=== PATIENT | male | born 1940 | race Caucasian/White ===

== ENCOUNTER 2023-03-19 13:14 | Observation (INO) ==
[2023-03-19] MEDS ORDERED: SODIUM CHLORIDE 500 ML IV STA (13:44)
--- NOTE | 2023-03-19 13:53 | ED.PDOC ---
General ED Provider: Dr. NIKI BURKETT MD Chief Complaint: Weakness Stated Complaint: CC: Weakness. Reported weak for 2 days and not gotten out of bed. Normally he is fully alert and resides in assistive living with his pet dog. Today, he got up to use the bathroom and fell with no major injuries. In the ED, temp of 101.6 noted. He reports "discomfort" when asked if he's in pain. No headache or neck injury. No chest pain or SOB but some cough. No abdominal pain. No vomiting. Unable to give details about his PMH. He is a [facility] patient and his medicines are under the microwave in his residence. Said he thought he had the COVID vaccine and usually takes the flu vaccine. Time Seen by Provider: 03/19/23 13:17 Mode of Arrival: Ambulance Information Source: Patient and EMT Exam Limitations: Clinical condition and Altered mental status Referred to ED by: Other (Assistive living facility staff) Nursing and Triage Documentation Reviewed and Agree: Yes Review of Systems Review Of Systems Constitutional: Reports Malaise, Weakness and Loss of appetite Eyes: Denies Drainage or Decreased acuity Ears, Nose, Mouth, Throat: Denies Ear pain Respiratory: Reports Cough; Denies Shortness of Breath Cardiac: Denies Chest pain GI: Denies Abdominal pain or Vomiting : Denies Dysuria Musculoskeletal: Reports Muscle pain (Discomfort, unable to provide further details) Skin: Reports No symptoms Neurological: Denies Headache All Other Systems: Other (all pertinent ROS done) Physical Exam Physical Exam Appearance: Reports Ill-appearing, No pain distress, Well-nourished and Other (Fully oriented to person and hospital. Knows it 2022 and thinks it's January. ) Ill-appearing: Moderate Pain Distress: None Eyes: Reports HALIMA and EOMI ENT: Reports Nose normal and Oropharynx normal Neck: Supple Respiratory: Reports Airway patent, Breath sounds equal, Respirations nonlabored and Rhonchi; Denies Wheezes or Retractions Cardiovascular: Reports RRR, Pulses normal, No rub and No murmur GI/: Reports Soft, Nontender, No masses, Bowel sounds normal and No Organomegaly; Denies Tender or Mass Musculoskeletal: Reports Normal strength, ROM intact, No edema and No calf tenderness Skin: Reports Warm, Dry and Normal color Neurological: Reports Sensation intact, Motor intact, Reflexes intact, Cranial nerves intact and Other (Slow to respond, opens eyes but answers questions with short answers) Psychiatric: Reports Affect appropriate and Mood appropriate Interpretation EKG Interpretation EKG Interpretation By: ED Physician Time of EKG #1: 14:16 Rate: Normal Rhythm: Sinus Ectopy: None [place]: NL ST Segment: Normal Interpretation: Normal EKG Radiology Interpretation Radiology Interpretation By: Radiologist Exam Interpreted: Portable CXR (normal), CT Scan (Some hypoattenuation of the brain, possible old but recommended MRI brain) and Other (MRI of Brain with and without showed no acute changes but some old infarct. ) Physician Notification Case Discussed Physician Notified: Keshia Hobbs Time of Notification: 17:00 Comments: OBS admit Admit/Transition Orders Entered by ED Provider: No Critical Care Note Critical Care Note Total Critical Care Time (mins): 0 Course Course 03/19/23 13:45 03/19/23 13:45 Orders, Labs, Meds: Lab Review 03/19/23 03/19/23 13:45 14:00 WBC 6.01 RBC 4.44 L Hgb 13.7 L Hct 41.9 L MCV 94.4 H MCH 30.9 MCHC 32.7 RDW Coeff of Art 13.6 Plt Count 145 Immature Gran % (Auto) 0.5 Neut % (Auto) 75.2 Lymph % (Auto) 3.7 L Atkinson % (Auto) 20.1 H Eos % (Auto) 0.0 Baso % (Auto) 0.5 Neut # (Auto) 4.5 Lymph # (Auto) 0.2 L Atkinson # (Auto) 1.2 Eos # (Auto) 0.0 Baso # (Auto) 0.0 Immature Gran # (Auto) 0.0 ESR 7 Sodium 135.7 Potassium 4.37 Chloride 102.6 Carbon Dioxide 26.8 Anion Gap 10.67 BUN 18.4 Creatinine 1.12 H Estimated GFR (MDRD) 63.00 BUN/Creatinine Ratio 16.42 Glucose 108.1 H Lactic Acid 1.26 Calcium 9.10 Total Bilirubin 0.80 AST 47.3 ALT 25.8 Alkaline Phosphatase 71.3 Total Protein 7.83 Albumin 4.39 Globulin 3.44 Albumin/Globulin Ratio 1.27 Procalcitonin < 0.05 Urine Color Yellow Urine Clarity Clear Urine pH 7.0 Ur Specific [place] 1.020 Urine Protein 2+ H Urine Glucose (UA) Negative Urine Ketones 1+ H Urine Blood 2+ H Urine Nitrite Negative Urine Bilirubin Negative Urine Urobilinogen 0.2 Ur Leukocyte Esterase Negative Urine Microscopic RBC 5-10 Ur Squamous Epith Cells Not Reportable Influ A Molecular Assay Negative by naat Influ B Molecular Assay Negative by naat RSV Antigen Negative by naat SARS CoV-2 RNA Rapid YASMINE Positive H Orders Category Date Time Status EKG-(ED ONLY) Stat CARDIO 03/19/23 13:53 Completed BLOOD CULTURE (ED ONLY) Stat LAB 03/19/23 13:45 Received CBC W/ AUTO DIFF Stat LAB 03/19/23 13:45 Completed CMP [COMPREHENSIVE METABOLIC PANEL] Stat LAB 03/19/23 13:45 Completed COVID [SARS COV-2 RNA RAPID YASMINE] Stat LAB 03/19/23 13:45 Completed ESR Stat LAB 03/19/23 13:45 Completed FLU A & B MOLECULAR [FLU A/B MOLECULAR] Stat LAB 03/19/23 13:45 Completed LACTIC ACID Stat LAB 03/19/23 13:45 Completed PROCALCITONIN Stat LAB 03/19/23 13:45 Completed RSV Stat LAB 03/19/23 14:00 Completed URINALYSIS C & S IF INDICATED Stat LAB 03/19/23 13:45 Completed Acetaminophen [Tylenol 160 mg/5 ml] Meds 03/19/23 13:59 Discontinued 480 mg PO ONCE ONE Ceftriaxone/D5w 1 gm Premix [Rocephin 1 gm/50 ml D5w] Meds 03/19/23 15:30 Active 1 gm in 50 ml IV DAILY Dexamethasone Sod Phosphate [Decadron] Meds 03/19/23 15:12 Discontinued 6 mg IVP ONCE ONE Ibuprofen Susp [Motrin Susp Ud] Meds 03/19/23 15:43 Discontinued 600 mg PO ONCE STA Sodium Chloride 0.9% [Sodium Chloride] 500 ml Meds 03/19/23 13:44 Active IV 125 mls/hr CHEST, 1V AP ONLY Stat RADS 03/19/23 13:[address] HEAD W/O CONTRAST Stat RADS 03/19/23 13:44 Completed MRI BRAIN W/WO CONTRAST Stat RADS 03/19/23 15:14 Completed Medications Generic Name Dose Route Start Last Admin Trade Name Freq PRN Reason Stop Dose Admin Sodium Chloride 500 mls @ 125 mls/hr 03/19/23 13:44 03/19/23 13:57 Sodium Chloride IV 03/19/23 17:43 125 mls/hr .Q4H STA Administration CEFTRIAXONE/D5W 1 GM PREMIX 1 gm in 50 mls @ 100 mls/hr 03/19/23 15:30 03/19/23 16:03 Rocephin 1 Gm/50 Ml D5w IV 03/22/23 15:29 100 mls/hr DAILY ZAKIA Administration Discontinued Medications Generic Name Dose Route Start Last Admin Trade Name Francisca PRN Reason Stop Dose Admin Acetaminophen 480 mg 03/19/23 13:59 03/19/23 14:06 Acetaminophen 160 Mg/5 Ml Susp Syringes PO 03/19/23 14:00 480 mg ONCE ONE Administration Dexamethasone Sodium Phosphate 6 mg 03/19/23 15:12 03/19/23 15:23 Dexamethasone Sod Phos 10 Mg/Ml Inj IVP 03/19/23 15:13 6 mg ONCE ONE Administration Ibuprofen 600 mg 03/19/23 15:43 03/19/23 16:03 Ibuprofen 200 Mg/10 Ml Susp PO 03/19/23 15:44 600 mg ONCE STA Administration Vital Signs: Temp Pulse Resp BP Pulse Ox 03/19/23 15:26 103.1 F H 03/19/23 15:20 98 21 H 140/55 L 97 03/19/23 13:18 101.6 F H 102 H 26 H 144/72 H 97 Ayla ADAN called and said it's ok to admit at [facility]. He is more perky now. Awake. All signs point to COVID only. Due to weakness will admit OBS Discharge Plan Discharge Patient Disposition: PLACED OBSERVATION Discharge Problem: Muscle weakness, COVID-19 Prescriptions: No Action aspirin 81 mg capsule 81 mg PO DAILY trazodone 50 mg tablet 50 mg PO BEDTIME pravastatin 40 mg tablet 40 mg PO DAILY omeprazole 40 mg capsule,delayed release(DR/EC) 40 mg PO DAILY metoprolol tartrate [Lopressor] 50 mg tablet 50 mg PO BID melatonin 3 mg capsule 6 mg PO BEDTIME meclizine [Dramamine (meclizine)] 25 mg tablet 25 mg PO TID PRN (Reason: dizziness) magnesium oxide 400 mg magnesium capsule 400 mg PO DAILY docusate sodium [Colace] 100 mg capsule 200 mg PO DAILY PRN (Reason: constipation) cholecalciferol (vitamin D3) 50 mcg (2,000 unit) capsule 50 mcg PO DAILY baclofen 5 mg tablet 5 mg PO TID acetaminophen 500 mg capsule 500 mg PO Q4-6H PRN (Reason: fever or pain) Did you review [place] PR[employer] for ALL controlled substances?: Not Applicable ED Provider: NIKI BURKETT Condition: Fair Physician Progress Note: []Call to Ayla ARELLANO and they given permission to admit to [facility]. Keshia Hobbs called and agreed to OBS admit
[2023-03-19 13:57] LABS: BASOPHILS % (AUTO) 0.5 % (0.0-3.0); HEMATOCRIT 41.9 % (42.0-52.0); HEMOGLOBIN 13.7 g/dl (14.0-18.0); IMMATURE GRANULOCYTE % (AUTO) 0.5 % (0.0-5.0); LYMPHOCYTES # (AUTO) 0.2 K/uL (0.60-3.4); LYMPHOCYTES % (AUTO) 3.7 (10.0-50.0); MEAN CORPUSCULAR HEMOGLOBIN 30.9 pg (27.0-31.0); MEAN CORPUSCULAR HGB CONC 32.7 (31.8-35.4); MEAN CORPUSCULAR VOLUME 94.4 fl (80.0-94.0); MONOCYTES # (AUTO) 1.2 K/uL (0.4-2.0); MONOCYTES % (AUTO) 20.1 (0-10); NEUTROPHILS # (AUTO) 4.5 K/ul (2.0-6.9); NEUTROPHILS % (AUTO) 75.2 % (42.2-75.2); PLATELET COUNT 145 10^3/uL (140-440); RDW COEFFICIENT OF VARIATION 13.6 % (11.6-14.8); RED BLOOD COUNT 4.44 10^6/ul (4.70-6.10); WHITE BLOOD COUNT 6.01 K/ul (4.2-10.2)
[2023-03-19] MEDS ORDERED: TYLENOL 160 MG/5 ML PO ONE (13:59)
[2023-03-19 14:10] LABS: ALANINE AMINOTRANSFERASE 25.8 U/L (0-50); ALBUMIN 4.39 g/dL (3.5-5.0); ALKALINE PHOSPHATASE 71.3 U/L (56-119); ASPARTATE AMINO TRANSFERASE 47.3 U/L (17-59); BILIRUBIN,TOTAL 0.8 mg/dL (0.2-1.3); BLOOD UREA NITROGEN 18.4 mg/dL (9-20); CALCIUM 9.1 mg/dL (8.4-10.2); CARBON DIOXIDE 26.8 mmol/L (22-30.0); CHLORIDE 102.6 mmol/L (98-107); CREATININE 1.12 mg/dL (0.60-1.10); GLUCOSE 108.1 mg/dL (74-106); POTASSIUM 4.37 mmol/L (3.5-5.1); SARS COV-2 RNA RAPID NAAT POSITIVE (NEGATIVE); SODIUM 135.7 mmol/L (134.5-145); TOTAL PROTEIN 7.83 g/dL (6.3-8.2)
[2023-03-19 14:14] LABS: BILIRUBIN,URINE Negative (NEGATIVE); CLARITY,URINE Clear (CLEAR); COLOR,URINE Yellow (YELLOW); GLUCOSE, URINE (UA) Negative (NEGATIVE); KETONES,URINE 1+ (NEGATIVE); LEUKOCYTE ESTERASE ,URINE Negative (NEGATIVE); NITRITE,URINE Negative (NEGATIVE); PROTEIN,URINE 2+ (NEGATIVE); URINE, BLOOD 2+ (NEGATIVE); UROBILINOGEN,URINE 0.2 (0.2)
[2023-03-19 14:16] LABS: MOLECULAR FLU A NEGATIVE BY NAAT (NEGATIVE); MOLECULAR FLU B NEGATIVE BY NAAT (NEGATIVE)
[2023-03-19 14:20] LABS: RSV MOLECULAR NEGATIVE BY NAAT (NEGATIVE)
--- NOTE | 2023-03-19 14:27 | DI ---
EXAM: CHEST RADIOGRAPH TECHNIQUE: Single frontal chest radiograph. HISTORY: Fever COMPARISON: None. IMPRESSION: The heart size is normal. Mediastinal contours and pulmonary vasculature are within fred l limits. The lungs are clear. There is no pleural effusion. There is no pneumothorax. EKG leads and clips obscure the chest. No acute findings. No active disease.
--- NOTE | 2023-03-19 14:42 | CT ---
EXAMINATION: HEAD CT WITHOUT CONTRAST HISTORY: Weakness. TECHNIQUE: Noncontrast CT of the brain was performed with images acquired from skull base to vertex. 2-D coronal and sagittal reformatted images were obtained from the axial source images. Contrast Dose: None. CT Dose Reduction Techniques Performed: Yes. COMPARISON: None. FINDINGS: Asymmetric low attenuation high centrum semiovale lesion in the right sobeida cranium sparing of the gra y-white matter junction. Ischemic process less likely. Malignancy or underlying mass not excluded. Additional low attenuation lesion in the lentiform nucleus and basal ganglia possibly representing ch ronic process sees. Brain MRI would definitively exclude an acute process as deemed clinically necaimee garcia. Ventricles: Normal size and morphology for age. Paranasal sinuses and mastoid air cells: Visualized portions of paranasal sinuses are clear. Mastoid air cells are clear. Orbits: Normal visualized portions. Sella/Skull Base: Normal. Other: Scalp and visualized soft tissues are normal. Calvarium is normal. IMPRESSION: As above. All CT scans are performed using dose optimization techniques as appropriate to the performed exam an d include at least one of the following: Automated exposure control, adjustment of the mA and/or kV according t o size, and the use of iterative reconstruction technique.
[2023-03-19 14:50] LABS: ERYTHROCYTE SEDIMENTATION RATE 7 mm/hr (0-15)
[2023-03-19] MEDS ORDERED: DECADRON IVP ONE (15:12)
[2023-03-19] MEDS ORDERED: ROCEPHIN 1 GM/50 ML D5W 1 GM/50 ML BAG IV SCH (15:30)
[2023-03-19] MEDS ORDERED: MOTRIN SUSP UD PO STA (15:43)
--- NOTE | 2023-03-19 16:24 | MRI ---
EXAMINATION: MAGNETIC RESONANCE IMAGING (MRI) OF THE BRAIN WITH AND WITHOUT CONTRAST HISTORY: Altered mental status. TECHNIQUE: Multiplanar multi-weighted MRI of the brain and brainstem was performed with and without i ntravenous contrast using the general brain protocol. Contrast: 13 mL clariscan COMPARISON: CT head 03/19/2023 FINDINGS: Parenchyma: No acute infarct. No acute hemorrhage. No enhancing intracranial lesion. No mass effec t or midline shift. Craniocervical junction is normal. Chronic Change: Scattered foci of T2/FLAIR hyperintensity in the periventricular and subcortical whit e matter, which are nonspecific, however likely represent mild chronic microvascular ischemia. No re mote microhemorrhages. Mild to moderate generalized cortical volume loss. 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 Chronic la cunar infarcts in the left lentiform nucleus and thalamus. Ventricles/Extra-axial Spaces: Ventricles are concordant with the degree of parenchymal volume loss. Normal basal cisterns. Sella/Skull Base: Pituitary and sella are normal. Paranasal Sinuses/Mastoids: Paranasal sinuses are clear. Mastoid air cells are clear. Orbits: Normal. Vasculature: Normal flow voids in the carotid arteries and basilar artery. Calvarium/Scalp: Normal marrow. No soft tissue swelling. Limited Cervical Spine: No significant abnormality. IMPRESSION: No acute intracranial abnormality. 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
[2023-03-19] MEDS ORDERED: MOTRIN PO PRN (17:11)
[2023-03-19] MEDS: [UNRECOGNIZED DRUG - OTHER] PO SCH ×2 (18:51→20:27)
[2023-03-19 19:49] VITALS: BMI 19.0
[2023-03-19] MEDS: DESYREL PO SCH (20:25)
[2023-03-19] MEDS: LOPRESSOR PO SCH (20:25)
[2023-03-20 05:05] LABS: HEMATOCRIT 41.8 % (42.0-52.0); HEMOGLOBIN 13.6 g/dl (14.0-18.0); IMMATURE GRANULOCYTE % (AUTO) 0.1 % (0.0-5.0); LYMPHOCYTES # (AUTO) 0.5 K/uL (0.60-3.4); LYMPHOCYTES % (AUTO) 7.6 (10.0-50.0); MEAN CORPUSCULAR HEMOGLOBIN 30.8 pg (27.0-31.0); MEAN CORPUSCULAR HGB CONC 32.5 (31.8-35.4); MEAN CORPUSCULAR VOLUME 94.6 fl (80.0-94.0); MONOCYTES # (AUTO) 0.7 K/uL (0.4-2.0); NEUTROPHILS # (AUTO) 5.5 K/ul (2.0-6.9); NEUTROPHILS % (AUTO) 82.3 % (42.2-75.2); PLATELET COUNT 130 10^3/uL (140-440); RDW COEFFICIENT OF VARIATION 13.7 % (11.6-14.8); RED BLOOD COUNT 4.42 10^6/ul (4.70-6.10); WHITE BLOOD COUNT 6.69 K/ul (4.2-10.2)
[2023-03-20 05:17] LABS: ALANINE AMINOTRANSFERASE 31.2 U/L (0-50); ALBUMIN 4.01 g/dL (3.5-5.0); ALKALINE PHOSPHATASE 53.6 U/L (56-119); ASPARTATE AMINO TRANSFERASE 71.5 U/L (17-59); BILIRUBIN,TOTAL 0.64 mg/dL (0.2-1.3); CALCIUM 8.76 mg/dL (8.4-10.2); CARBON DIOXIDE 27.7 mmol/L (22-30.0); CHLORIDE 104.9 mmol/L (98-107); CREATININE 1.02 mg/dL (0.60-1.10); GLUCOSE 123.8 mg/dL (74-106); POTASSIUM 4.25 mmol/L (3.5-5.1); SODIUM 137.1 mmol/L (134.5-145); TOTAL PROTEIN 7.32 g/dL (6.3-8.2)
[2023-03-20] MEDS: LOPRESSOR PO SCH ×2 (08:28→20:12)
[2023-03-20] MEDS: MAG-OX PO SCH (08:28)
[2023-03-20] MEDS: PRAVACHOL PO SCH (08:30)
[2023-03-20] MEDS: [UNRECOGNIZED DRUG - OTHER] PO SCH ×2 (08:30→20:15)
[2023-03-20] MEDS ORDERED: PRILOSEC PO SCH (09:00)
[2023-03-20] MEDS ORDERED: ASPIRIN CHEWABLE PO SCH (09:00)
--- NOTE | 2023-03-20 11:37 | PCM ---
Date of Service Date Seen by Provider: 03/20/23 Time Seen by Provider: 08:40 Admit Day/Time Admission Date: 03/19/23 Admission Time: 17:11 Reason for Admission Chief Complaint: COVID Hospital Provider [facility] Provider: GIUSEPPE PETTIT [facility]-C, [facility] History of Present Illness History of Present Illness: Patient is a 82 year old male from assisted living with pmhx of hypertension, GERD, hyperlipidemia who presents with weakness, fall, and fever. Patient had not gotten out of bed for two days. Had a fall while ambulating to the bathroom. Did not have any major injuries. Has been more confused than his usual. Had a fever 101.6 and then 103.1 in the ER. His covid was positive. CXR negative. UA negative except for 2+ blood. On RA. He was lethargic initially. Was given motrin and tylenol. Fever improved and he was more alert. Pt thinks he's had the covid vaccine in the past. He was admitted to [facility]. This morning patient is confused and paranoid. He keeps asking about his expensive suits in the closet. States he needs to shave his face or he will be yelled at during inspection this evening. He has a family friend who has been helping care for him at the assisted living - providing groceries, etc. He has maxed out his efforts and feels he needs alf placement at this time. Pt is alert this morning. He is oriented to self and time. He thought he was at his assisted living. Sp[facility], Li Lerner NP. She states he has dementia at baseline but the paranoid has been recently new. He hadn't taken his prepackaged medications in a month during her last visit. Case Discussed With Case Discussed With: Patient's case was discussed with the ER Physicians, Dr. Valencia. [facility] Medical History Chronic renal disease, stage 3, moderately decreased glomerular filtration rate (GFR) between 30-59 mL/min/1.73 square meter N18.30 - Chronic kidney disease, stage 3 unspecified (ICD-10) Hypertensive cardiovascular disease I11.9 - Hypertensive heart disease without heart failure (ICD-10) Rotator cuff tear, right M75.101 - Unspecified rotator cuff tear or rupture of right shoulder, not specified as traumatic (ICD-10) Insomnia G47.00 - Insomnia, unspecified (ICD-10) Chronic depression F32.A - Depression, unspecified (ICD-10) Rhinitis, allergic J30.9 - Allergic rhinitis, unspecified (ICD-10) Dementia F03.90 - Unspecified dementia, unspecified severity, without behavioral disturbance, psychotic disturbance, mood disturbance, and anxiety (ICD-10) Dementia F03.90 - Unspecified dementia, unspecified severity, without behavioral disturbance, psychotic disturbance, mood disturbance, and anxiety (ICD-10) Social History Smoking and tobacco status: Never smoker Allergies Allergies Allergy/AdvReac Type Severity Reaction Status Date / Time No Known Allergies Allergy Unverified 03/19/23 16:54 Current Medications Home Medications acetaminophen 500 mg capsule 500 mg PO Q4-6H PRN fever or pain 03/19/23 [History Confirmed 03/19/23 Last Taken Unknown] aspirin 81 mg capsule 81 mg PO DAILY 03/19/23 [History Confirmed 03/19/23 Last Taken Unknown] baclofen 5 mg tablet 5 mg PO TID 03/19/23 [History Confirmed 03/19/23 Last Taken Unknown] cholecalciferol (vitamin D3) 50 mcg (2,000 unit) capsule 50 mcg PO DAILY 03/19/23 [History Confirmed 03/19/23 Last Taken Unknown] docusate sodium 100 mg capsule (Colace) 200 mg PO DAILY PRN constipation 03/19/23 [History Confirmed 03/19/23 Last Taken Unknown] magnesium oxide 400 mg PO DAILY 03/19/23 [History Confirmed 03/19/23 Last Taken Unknown] meclizine 25 mg tablet (Dramamine (meclizine)) 25 mg PO TID PRN dizziness 03/19/23 [History Confirmed 03/19/23 Last Taken Unknown] melatonin 3 mg capsule 6 mg PO BEDTIME 03/19/23 [History Confirmed 03/19/23 Last Taken Unknown] metoprolol tartrate 50 mg tablet (Lopressor) 50 mg PO BID 03/19/23 [History Confirmed 03/19/23 Last Taken Unknown] omeprazole 40 mg capsule,delayed release 40 mg PO DAILY 03/19/23 [History Confirmed 03/19/23 Last Taken Unknown] pravastatin 40 mg tablet 40 mg PO DAILY 03/19/23 [History Confirmed 03/19/23 Last Taken Unknown] trazodone 50 mg tablet 50 mg PO BEDTIME 03/19/23 [History Confirmed 03/19/23 Last Taken Unknown] Home Acetaminophen (Acetaminophen 325 Mg Tablet) 650 mg PO Q4H PRN PRN Reason: Mild Pain Last Admin: 03/20/23 11:42 Dose: 650 mg Aspirin (Aspirin 81 Mg Tab.Chew) 81 mg PO DAILYWM2 [facility] Ibuprofen (Ibuprofen 600 Mg Tablet) 600 mg PO Q8H PRN PRN Reason: FEVER/PAIN Magnesium Oxide (Magnesium Oxide 400 Mg Tablet) 400 mg PO DAILY [facility] Last Admin: 03/20/23 08:28 Dose: 400 mg Metoprolol Tartrate (Metoprolol Tartrate 50 Mg Tablet) 50 mg PO BID [facility] Last Admin: 03/20/23 08:28 Dose: 50 mg Nirmatrelvir/Ritonavir (Nirmatrelvir/Ritonavir *Renal* 150-100 Mg Pack (Eua)) 2 each PO BID [facility] Stop: 03/24/23 10:00 Last Admin: 03/20/23 08:30 Dose: 2 each Omeprazole (Omeprazole 20 Mg Capsule.Dr) 40 mg PO QDAC2 [facility] Pravastatin Sodium (Pravastatin Sodium 40 Mg Tablet) 40 mg PO DAILY [facility] Last Admin: 03/20/23 08:30 Dose: 40 mg Sodium Chloride (0.9% Sodium Chloride 10 Ml Disp.Syrin) 1 syr IVF Q8HR [facility] Last Admin: 03/20/23 04:23 Dose: 1 syr Trazodone HCl (Trazodone Hcl 50 Mg Tablet) 50 mg PO BEDTIME [facility] Last Admin: 03/19/23 20:25 Dose: 50 mg Discontinued Medications Acetaminophen (Acetaminophen 160 Mg/5 Ml Susp Syringes) 480 mg PO ONCE ONE Stop: 03/19/23 14:00 Last Admin: 03/19/23 14:06 Dose: 480 mg Aspirin (Aspirin 81 Mg Tab.Chew) 81 mg PO DAILY [facility] Last Admin: 03/20/23 08:29 Dose: Not Given Dexamethasone Sodium Phosphate (Dexamethasone Sod Phos 10 Mg/Ml Inj) 6 mg IVP ONCE ONE Stop: 03/19/23 15:13 Last Admin: 03/19/23 15:23 Dose: 6 mg Sodium Chloride (Sodium Chloride) 500 mls @ 125 mls/hr IV .Q4H STA Stop: 03/19/23 17:43 Last Admin: 03/19/23 13:57 Dose: 125 mls/hr CEFTRIAXONE/D5W 1 GM PREMIX (Rocephin 1 Gm/50 Ml D5w) 1 gm in 50 mls @ 100 mls/hr IV DAILY [facility] Stop: 03/22/23 15:29 Last Admin: 03/19/23 16:03 Dose: 100 mls/hr Ibuprofen (Ibuprofen 200 Mg/10 Ml Susp) 600 mg PO ONCE STA Stop: 03/19/23 15:44 Last Admin: 03/19/23 16:03 Dose: 600 mg Omeprazole (Omeprazole 20 Mg Capsule.Dr) 40 mg PO DAILY [facility] Last Admin: 03/20/23 08:28 Dose: 40 mg Review of Systems Constitutional: Reports Fever, Fatigue and Weakness Head: Reports Normocephalic and Atraumatic Throat: Denies Sore Throat or Difficulty Swallowing Cardiovascular: Denies Chest pain, Chest Pressure or Edema Respiratory: Denies Cough or Shortness of air Gastrointestinal: Denies Nausea, Vomiting, Diarrhea, Abdominal pain or Melena Genitourinary: Denies Dysuria Dermatologic: Denies Rashes Neurological: Reports Weakness and Problems with walking; Denies Dizziness or Numbness Physical examination Most Recent Vital Signs: Most Recent Vital Signs Temperature 97.8 F 03/20/23 10:00 Temperature Source Temporal Artery Scan 03/20/23 10:00 Temperature Source Infrared 03/19/23 17:10 Pulse Rate 58 L 03/20/23 10:00 Respiratory Rate 19 03/20/23 10:00 Blood Pressure 131/64 03/20/23 10:00 Blood Pressure Mean 86 03/20/23 10:00 Blood Pressure Left Arm 114/56 03/19/23 17:58 Blood Pressure Location Right Arm 03/20/23 10:00 Blood Pressure Position Supine 03/20/23 05:33 O2 Sat by Pulse Oximetry 96 03/20/23 10:00 Oxygen Delivery Method Room Air 03/20/23 11:00 Height 5 ft 8 in 03/19/23 17:58 Weight 125 lb 03/19/23 17:58 Telemetry Type Remote Telemetry 03/20/23 07:00 Telemetry Monitoring Continues 03/20/23 07:00 Telemetry Heart Rate 59 L 03/20/23 07:00 EKG MT Interval 0.14 03/20/23 07:00 EKG QRS Interval 0.09 03/20/23 07:00 Telemetry Strip Reading NSR 03/20/23 07:00 Appearance: Positive Well-appearing, Well-nourished and No Apparent Distress Skin: Positive Wilder, Warm and Good Turgor; Negative Rashes HEENT: Positive Normocephalic and Atraumatic Neck: Positive Supple and Midline Trachea Chest/Lungs: Positive Clear to Auscultation Bilaterally; Negative Rales, Rhonci or Wheezes Heart: Positive RRR GI/: Positive Soft, Nontender, Bowel Sounds Normal and No Distention Extremities: Negative Edema Neurological: Positive Cranial Nerves Intact, Alert, Disorinted and Other (+generalized weakness ) Psychiatric: Positive Other (+Oriented to self and time. Has paranoia. ); Negative Intact Memory, Good Short-Term Recall, Normal Judgement or Normal Insight Labs This Visit Labs This Visit: Labs This Visit 03/19/23 03/19/23 03/20/23 13:45 14:00 04:58 WBC 6.01 6.69 RBC 4.44 L 4.42 L Hgb 13.7 L 13.6 L Hct 41.9 L 41.8 L MCV 94.4 H 94.6 H MCH 30.9 30.8 MCHC 32.7 32.5 RDW Coeff of Art 13.6 13.7 Plt Count 145 130 L Immature Gran % (Auto) 0.5 0.1 Neut % (Auto) 75.2 82.3 H Lymph % (Auto) 3.7 L 7.6 L Spink % (Auto) 20.1 H 10.0 Eos % (Auto) 0.0 0.0 Baso % (Auto) 0.5 0.0 Neut # (Auto) 4.5 5.5 Lymph # (Auto) 0.2 L 0.5 L Spink # (Auto) 1.2 0.7 Eos # (Auto) 0.0 0.0 Baso # (Auto) 0.0 0.0 Immature Gran # (Auto) 0.0 0.0 ESR 7 Sodium 135.7 137.1 Potassium 4.37 4.25 Chloride 102.6 104.9 Carbon Dioxide 26.8 27.7 Anion Gap 10.67 8.75 BUN 18.4 22.0 H Creatinine 1.12 H 1.02 Estimated GFR (MDRD) 63.00 70.00 BUN/Creatinine Ratio 16.42 21.56 Glucose 108.1 H 123.8 H Lactic Acid 1.26 Calcium 9.10 8.76 Total Bilirubin 0.80 0.64 AST 47.3 71.5 H ALT 25.8 31.2 Alkaline Phosphatase 71.3 53.6 L Total Protein 7.83 7.32 Albumin 4.39 4.01 Globulin 3.44 3.31 Albumin/Globulin Ratio 1.27 1.21 Procalcitonin < 0.05 Urine Color Yellow Urine Clarity Clear Urine pH 7.0 Ur Specific Holman 1.020 Urine Protein 2+ H Urine Glucose (UA) Negative Urine Ketones 1+ H Urine Blood 2+ H Urine Nitrite Negative Urine Bilirubin Negative Urine Urobilinogen 0.2 Ur Leukocyte Esterase Negative Urine Microscopic RBC 5-10 Ur Squamous Epith Cells Not Reportable Influ A Molecular Assay Negative by naat Influ B Molecular Assay Negative by naat RSV Antigen Negative by naat SARS CoV-2 RNA Rapid YASMINE Positive H Imaging Imaging: EXAM: CHEST RADIOGRAPH TECHNIQUE: Single frontal chest radiograph. HISTORY: Fever COMPARISON: None. IMPRESSION: The heart size is normal. Mediastinal contours and pulmonary vasculature are within normal limits. The lungs are clear. There is no pleural e ffusion. There is no pneumothorax. EKG leads and clips obscure the chest. No acute findings. No active disease. EXAMINATION: HEAD CT WITHOUT CONTRAST HISTORY: Weakness. TECHNIQUE: Noncontrast CT of the brain was performed with images acquired from skull base to vertex. 2-D coronal and sagittal reformatted images were obtained from the axial source images. Contrast Dose: None. CT Dose Reduction Techniques Performed: Yes. COMPARISON: None. FINDINGS: Asymmetric low attenuation high centrum semiovale lesion in the right sobeida cranium sparing of the quiñonez-white matter junction. Ischemic process less likely. Malignancy or underlying mass not excluded. Additional low attenuation lesion in the lentiform nucleus and basal ganglia possibly representing chronic process sees. Brain MRI would definitively exclude an acute process as deemed clinically necessary. Ventricles: Normal size and morphology for age. Paranasal sinuses and mastoid air cells: Visualized portions of paranasal sinuses are clear. Mastoid air cells are clear. Orbits: Normal visualized portions. Sella/Skull Base: Normal. Other: Scalp and visualized soft tissues are normal. Calvarium is normal. IMPRESSION: As above. EXAMINATION: MAGNETIC RESONANCE IMAGING (MRI) OF THE BRAIN WITH AND WITHOUT CONTRAST HISTORY: Altered mental status. TECHNIQUE: Multiplanar multi-weighted MRI of the brain and brainstem was perf ormed with and without intravenous contrast using the general brain protocol. Contrast: 13 mL clariscan COMPARISON: CT head 03/19/2023 FINDINGS: Parenchyma: No acute infarct. No acute hemorrhage. No enhancing intracranial lesion. No mass effect or midline shift. Craniocervical junction is normal. Chronic Change: Scattered foci of T2/FLAIR hyperintensity in the periventricular and subcortical white matter, which are nonspecific, however likely represent mild chronic microvascular ischemia. No remote microhemorrhages. Mild to moderate generalized cortical volume loss. 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 Chronic lacunar infarcts in the left lentiform nucleus and thalamus. Ventricles/Extra-axial Spaces: Ventricles are concordant with the degree of parenchymal volume loss. Normal basal cisterns. Sella/Skull Base: Pituitary and sella are normal. Paranasal Sinuses/Mastoids: Paranasal sinuses are clear. Mastoid air cells are clear. Orbits: Normal. Vasculature: Normal flow voids in the carotid arteries and basilar artery. Calvarium/Scalp: Normal marrow. No soft tissue swelling. Limited Cervical Spine: No significant abnormality. IMPRESSION: No acute intracranial abnormality. 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 Review Statement Review Statement: I have independently reviewed and interpreted the labs/EKGs/imaging that were ordered by the ER provider. I have reviewed all outside records that are available currently in our EMR including imaging/notes/labs from previous visits. Plan Plan: 1. Acute metabolic encephalopathy in setting Covid 19 - Improving since fever is down. Still confused and paranoid, not quite at baseline. Cont tylenol and/or motrin prn for fever. Cont paxlovid. 2. Covid 19 - CXR neg. On RA. Treating with paxlovid. 3. Hypertension - Cont home meds 4. Hyperlipidemia - Cont home meds 5. GERD - Cont home meds 6. Dementia - Acutely worsened by covid/fever. Pt has become unsafe to live by himself at assisted living. Per family friend, he does not receive much help at all there and it is to the point it is unsafe living conditions. Hasn't taken him medications in over a month at this point. Working on placement. DVT Prophylaxis: Lovenox Time Spent: Greater than 80 minutes spent with patient, 50% of the time spent with this patient was devoted to counseling and coordination of care. [facility] minutes spent discussing advance care planning. Admit to: Obs Discussed Plan of Care with Dr. Mitra Rolle. Medications Medication Orders: Medications Ordered Category Date Time Status 0.9 % Sodium Chloride [Saline Flush] Meds 03/19/23 21:00 Active 1 syr IVF Q8HR Acetaminophen [Tylenol] Meds 03/19/23 17:11 Active 650 mg PO Q4H PRN Aspirin [Aspirin Chewable] Meds 03/21/23 07:30 Active 81 mg PO DAILYWM2 Ibuprofen [Motrin] Meds 03/19/23 17:11 Active 600 mg PO Q8H PRN Magnesium Oxide [Mag-Ox] Meds 03/20/23 09:00 Active 400 mg PO DAILY Metoprolol Tartrate [Lopressor] Meds 03/19/23 21:00 Active 50 mg PO BID Nirmatrelvir/Ritonavir [Paxlovid *Renal* 150-100 mg Meds 03/19/23 18:05 Active Pack (Eua)] 2 each PO BID Omeprazole [Prilosec] Meds 03/21/23 06:00 Active 40 mg PO QDAC2 Pravastatin Sodium [Pravachol] Meds 03/20/23 09:00 Active 40 mg PO DAILY Trazodone HCl [Desyrel] Meds 03/19/23 21:00 Active 50 mg PO BEDTIME
[2023-03-20] MEDS: TYLENOL PO PRN (11:42)
--- NOTE | 2023-03-20 13:49 | RS.OTINEVL ---
Subjective Patient information Date of Evaluation: 03/20/23 Date of Arrival on Unit: 03/19/23 Admitted From:: Emergency Dept Diagnosis: Covid 19 PRECAUTIONS: Isolation, Falls Usual Living Arrangement: Alone Living Arrangement Comments: Apartment at independent living: [facility] Environment: Apartment Medications: Refer to chart Subjective Information/ Patient Comments:: "I have this little button here, it moves around, but if you push it the retail coverage merchandiser will know where I am. " Level of function Prior to this admission, the patient could do the following:: Independent Ambulation Abilities prior to this admission: Pt was receiving help in his home before he became sick with Covid. Current Level of Function: Partially Dependent Comments: Pt is able to carry his walker and walk with CGA. Current Equipment Used at Home: Patient did not say, has been slowly losing his independence Interventions Objective Patient Orientation: Person Current Interventions: IV's and Telemetry Observation: Pt is frail looking, thin and weak. Pt Min A to stand up from recliner. Pt was trying to feed himself however, his glasses are missing. Interventions ROM Right Upper Extremity AROM: Moderate limitation Left Upper Extremity AROM: Moderate limitation Comments: Pt has impaired BUE shoulders which impedes his LB dressing. Strength Right Upper Extremity: Mild Weakness Left Upper Extremity: Mild Weakness Sensation Right Upper Extremity: Intact/Normal Left Upper Extremity: Intact/Normal ADL Skills Grooming Grooming: CGA Grooming Set-up: Sitting Bathing Bathing UE: Min Assist Bathing LE: Min Assist Bathing Set-up: Shower Dressing Dressing UE: Min Assist Dressing LE: Min Assist Toilet Management Toilet Hygiene: Min Assist Toilet Clothing Management: Mod Assist Functional Mobility Transfers Sit to Stand: Min Assist Stand to Sit: Min Assist Stand Pivot Transfers: Min Assist Ambulation Weight Bearing Status: FWB Assistive Device Used: Rolling Walker (Pt carries the back of the RW stating he has 4 wheels on his walker and a seat. ) Orthotic/Prosthetic Device: No Assistance needed with Ambulation: Min Assist and Verbal Cues Safety Awareness Safety Awareness: Fair JOSE INDEX SCORE: . Additional Treatment Performed Time with patient Length of Evaluation: 18 Total treatment time: 36 Activities Do you enjoy playing games?: No Would you be interested in leaving your room for activities?: No Would you enjoy group activities?: No Do you have difficulty with your vision?: Yes Patient Interests:: Watching Television and Visiting/Socializing Patient Education Patient Education: Education of diagnosis, Home Safety and Education of Plan of Care Teaching Recipient: Patient Teaching Methods: Discussion and Demonstration Assessment Problem List:: Decreased level of function, Requires training/education, Decreased safety/Risk of falls and Weakness Rehab Potential: Good Further Therapy Indicated?: Yes Evaluation Complexity: HISTORY: Medium, EXAM OF BODY SYSTEMS: Medium and CLINICAL DECISION MAKING: Medium Patient's Goal(s): To be able to go back home and care for himself. Short Term Goals Goals GOAL 1: Pt to be (I) with donning his socks with AD. Goal to be met by: 03/22/23 GOAL 2: Pt to increase dyn. std. bal. to Fair to increase standing for ADLS. Goal to be met by: 03/25/23 GOAL 3: Pt to increase functional transfers to CGA. Goal to be met by: 03/25/23 Toe Pounder Goals GOAL 1: Pt to increase pt's ability to operate his walker correctly. Goal to be met by: 03/26/23 GOAL 2: Pt to increase functional transfers to SUP. Goal to be met by: 03/26/23 Plan Plan of Care: Therapeutic EX, Therapeutic Activity and Self-Care/Home Management Frequency of Treatment: 1-2 X day, as tolerated Duration of Treatment: 1 Week Anticipated Discharge Destination: [facility] Treatment Diagnosis (ICD 10 Codes): Weakness R53.1 Has the Physician been added for Co-signature?: Yes
--- NOTE | 2023-03-20 14:37 | RS.PTINEVL ---
Subjective Patient information Date of Evaluation: 03/20/23 Date of Arrival on Unit: 03/19/23 Admitted From:: Emergency Dept Diagnosis: Covid, SOA, Febrile Usual Living Arrangement: Alone Living Arrangement Comments: Apartment at independent living: [place] Home Environment: Apartment Medical History Comments:: HTN, GERD, Hyperlipidema Medications: Refer to chart Subjective Information/ Patient Comments:: Patient states he uses a walker with a seat on it. States it should be here in the room with him. He is pleasant and agrees to walk in the room with therapy. Reports both shoulders are messed up from serving in the during conflict. States he worked in "[employer]" while in the . States "they know where I am, I have a button here that I better not push, because it will call the police and they will show up." Level of function Prior to this admission, the patient could do the following:: Independent Ambulation Abilities prior to this admission: Chart notes that Mr. Carlton has had help in his home from a friend. Current Level of Function: Partially Dependent Current Equipment Used at Home: Patient did not say, has been slowly losing his independence Interventions Objective Patient Orientation: Person Current Interventions: Telemetry Observation: Patient presents sitting up in chair at bedside. Telemetry, BP cuff, and pulse oximetry disconnected for patient to be able to ambulate in the room with therapy. Range of Motion ROM Right Upper Extremity AROM: Moderate limitation Left Upper Extremity AROM: Moderate limitation Right Lower Extremity AROM: WFL's Left Lower Extremity AROM: WFL's Muscle Strength Muscle Strength Right Lower Extremity: Mild Weakness Left Lower Extremity: Mild Weakness Comments:: Bilateral LE strength is grossly 4/5 throughout. Sensation Sensation Comments: Reports intact sensation throughout bilateral LE's. Balance Sitting Balance and Reactions Static Sitting Balance: Good Dynamic Sitting Balance: Good Standing Balance and Reactions Static Standing Balance: Fair Dynamic Standing Balance: Fair (-) Functional Mobility Transfers Sit to Stand: CGA, Min Assist and Verbal Cues Stand to Sit: CGA and 1 person assist Stand Pivot Transfers: CGA and 1 person assist Safety Awareness Safety Awareness: Poor JOSE INDEX SCORE: NA Ambulation Ambulation Weight Bearing Status: FWB Assistive Device Used: Rolling Walker Distance: Ambulates ~ 15 feet in the room. Assistance needed with Ambulation: CGA, Min Assist, Verbal Cues and Tactile Cues Quality of Ambulation: Patient ambulates with rolling walker, but holds the back of the walker off the ground because he states it will drag the floor. Demonstrates no loss of balance with ambulation. Gait Deviations: Narrow Based gait, Forward posture and Short stride Factors Affecting Ambulation: Weakness, Decreased Safety and Cognitive Status Treatment time Time with patient Length of Evaluation: 18 Total treatment time: 24 Assessment Assessment Problem List:: Decreased level of function, Requires training/education, Decreased safety/Risk of falls, Weakness and Cognitive status limits abilities Rehab Potential: Good Further Therapy Indicated?: Yes Candidate for Swing Bed for Therapy Services?: Not at this time, patient presents possible need for LTC due to Cognitive status. Comments: Patient demonstrates difficulty recalling facts and presents confusion, but does not demonstrate any statements that would be considered paranoia. Evaluation Complexity: HISTORY: Medium, EXAM OF BODY SYSTEMS: Medium, CLINICAL PRESENTATION: Medium and CLINICAL DECISION MAKING: Medium Patient's Goal(s): His goal is to return to his prior level of function. Short Term Goals GOAL #1: Sit to stand with CGA of 1 with consistent use of UE's to push from seat. Goal to be met by: 03/22/23 GOAL #2: Pt to amb w/ appropriate use of RW or rollator 30 feet, w/ CGA of 1. Goal to be met by: 03/22/23 GOAL #3: Bed mobility with CGA and verbal cues. Goal to be met by: 03/22/23 Councilperson Goals GOAL #1: All bed mobility independent. Goal to be met by: 03/26/23 GOAL #2: Sit<>stand and pivot transfers with good safety, independently. Goal to be met by: 03/26/23 GOAL #3: Pt to amb household distances with good safety w/ rollator/RW, w/ SBA. Goal to be met by: 03/26/23 Plan Plan of Care: Therapeutic EX, Neuromuscular Re-Educ, Therapeutic Activity and Self-Care/Home Management Frequency of Treatment: 1-2 X day, as tolerated Duration of Treatment: 1 Week Anticipated Discharge Destination: [facility] Treatment Diagnosis (ICD 10 Codes): R26.2 Difficulty walking, Z91.81 High Risk for falls, Z74.0 reduced mobility Has the Physician been added for Co-signature?: Yes
[2023-03-20] MEDS: DESYREL PO SCH (20:12)
[2023-03-21] MEDS ORDERED: PRILOSEC PO SCH (06:00)
[2023-03-21 06:26] LABS: BASOPHILS % (AUTO) 0.1 % (0.0-3.0); HEMATOCRIT 41.1 % (42.0-52.0); HEMOGLOBIN 13.2 g/dl (14.0-18.0); IMMATURE GRANULOCYTE % (AUTO) 0.3 % (0.0-5.0); LYMPHOCYTES # (AUTO) 1.1 K/uL (0.60-3.4); LYMPHOCYTES % (AUTO) 11.1 (10.0-50.0); MEAN CORPUSCULAR HEMOGLOBIN 31.1 pg (27.0-31.0); MEAN CORPUSCULAR HGB CONC 32.1 (31.8-35.4); MEAN CORPUSCULAR VOLUME 96.7 fl (80.0-94.0); MONOCYTES # (AUTO) 0.7 K/uL (0.4-2.0); NEUTROPHILS # (AUTO) 8.1 K/ul (2.0-6.9); NEUTROPHILS % (AUTO) 81.5 % (42.2-75.2); PLATELET COUNT 120 10^3/uL (140-440); RDW COEFFICIENT OF VARIATION 13.5 % (11.6-14.8); RED BLOOD COUNT 4.25 10^6/ul (4.70-6.10); WHITE BLOOD COUNT 9.94 K/ul (4.2-10.2)
[2023-03-21 06:40] LABS: ALANINE AMINOTRANSFERASE 34.6 U/L (0-50); ALBUMIN 3.73 g/dL (3.5-5.0); ALKALINE PHOSPHATASE 51.2 U/L (56-119); ASPARTATE AMINO TRANSFERASE 81.4 U/L (17-59); BILIRUBIN,TOTAL 0.49 mg/dL (0.2-1.3); BLOOD UREA NITROGEN 28.5 mg/dL (9-20); CALCIUM 8.36 mg/dL (8.4-10.2); CARBON DIOXIDE 24.7 mmol/L (22-30.0); CHLORIDE 105.6 mmol/L (98-107); CREATININE 1.01 mg/dL (0.60-1.10); GLUCOSE 113.6 mg/dL (74-106); POTASSIUM 4.46 mmol/L (3.5-5.1); SODIUM 136.6 mmol/L (134.5-145); TOTAL PROTEIN 6.85 g/dL (6.3-8.2)
[2023-03-21] MEDS ORDERED: ASPIRIN CHEWABLE PO SCH (07:30)
[2023-03-21] MEDS: [UNRECOGNIZED DRUG - OTHER] PO SCH (08:33)
[2023-03-21] MEDS: LOPRESSOR PO SCH (08:40)
[2023-03-21] MEDS: MAG-OX PO SCH (08:40)
[2023-03-21] MEDS: PRAVACHOL PO SCH (08:40)
[2023-03-21] MEDS: TYLENOL PO PRN (09:30)
[2023-03-21 09:42] VITALS: BP 114/56; PULSE 64; RESP 18; TEMP 97.4
--- NOTE | 2023-03-21 09:47 | PCM.PROG ---
Date/Time Seen Date Seen by Provider: 03/21/23 Time Seen by Provider: 09:00 Provider Provider: GIUSEPPE PETTIT PA-C, [facility] Chief Complaint Chief Complaint: COVID Subjective Subjective: Patient doing well from covid standpoint. Has a mild cough. Otherwise on RA, no sob. Appears comfortable. Sitting in chair today with blankets. He knows he's in a medical building and that he is here because he had a fall. However he doesn't remember being told he has covid. He is worried that someone has taken his things from his apartment but is easily reassured. His paranoia has been easily redirected so far. He has not become agitated nor has he required any antipsychotics during his stay. He has been pleasant and talkative. Today he discussed his and how beautiful she was in the past, he wanted to show photos but forgot he didn't have his wallet on him. Objective Appearance: Positive Well-appearing, Well-nourished, No Apparent Distress and Alert and Oriented x3 (but has short term memory loss ) Chest/Lungs: Positive Clear to Auscultation Bilaterally; Negative Rales, Rhonci or Wheezes Heart: Positive RRR GI/: Positive Soft, Nontender, Bowel Sounds Normal and No Distention Neurological: Positive Cranial Nerves Intact, Alert, Oriented (but has short term memory loss ) and Other (+generalized weakness, improving ) Vital Signs Vital Signs: Vital Signs: Last 24 Hours 03/20/23 10:00 03/20/23 10:00 03/20/23 11:00 Temperature 97.8 F Temperature Source Temporal Artery Scan Pulse Rate 58 L Respiratory Rate 19 Blood Pressure 131/64 Blood Pressure Mean 86 Blood Pressure Location Right Arm Blood Pressure Position O2 Sat by Pulse Oximetry 96 Oxygen Delivery Method Room Air Room Air Room Air 03/20/23 11:55 03/20/23 12:54 03/20/23 13:46 Temperature Temperature Source Pulse Rate Respiratory Rate Blood Pressure Blood Pressure Mean Blood Pressure Location Blood Pressure Position O2 Sat by Pulse Oximetry Oxygen Delivery Method Room Air Room Air Room Air 03/20/23 14:00 03/20/23 15:00 03/20/23 16:00 Temperature 97.7 F Temperature Source Oral Pulse Rate 57 L Respiratory Rate 19 Blood Pressure 114/51 L Blood Pressure Mean 72 Blood Pressure Location Left Arm Blood Pressure Position O2 Sat by Pulse Oximetry 97 Oxygen Delivery Method Room Air Room Air Room Air 03/20/23 17:00 03/20/23 18:00 03/20/23 18:00 Temperature Temperature Source Pulse Rate Respiratory Rate Blood Pressure Blood Pressure Mean Blood Pressure Location Blood Pressure Position O2 Sat by Pulse Oximetry Oxygen Delivery Method Room Air Room Air Room Air 03/20/23 18:00 03/20/23 19:00 03/20/23 19:30 Temperature 97.6 F Temperature Source Oral Pulse Rate 54 L Respiratory Rate 16 Blood Pressure 112/57 L Blood Pressure Mean 75 Blood Pressure Location Blood Pressure Position O2 Sat by Pulse Oximetry 100 Oxygen Delivery Method Room Air Room Air Room Air 03/20/23 20:00 03/20/23 20:32 03/20/23 21:00 Temperature 97.5 F L Temperature Source Temporal Artery Scan Pulse Rate 54 L Respiratory Rate 18 Blood Pressure 127/70 Blood Pressure Mean 89 Blood Pressure Location Left Arm Blood Pressure Position Supine O2 Sat by Pulse Oximetry 99 Oxygen Delivery Method Room Air Room Air Room Air 03/20/23 22:00 03/20/23 23:00 03/21/23 00:00 Temperature Temperature Source Pulse Rate Respiratory Rate Blood Pressure Blood Pressure Mean Blood Pressure Location Blood Pressure Position O2 Sat by Pulse Oximetry Oxygen Delivery Method Room Air Room Air Room Air 03/21/23 01:00 03/21/23 02:00 03/21/23 03:00 Temperature Temperature Source Pulse Rate Respiratory Rate Blood Pressure Blood Pressure Mean Blood Pressure Location Blood Pressure Position O2 Sat by Pulse Oximetry Oxygen Delivery Method Room Air Room Air Room Air 03/21/23 04:00 03/21/23 05:00 03/21/23 05:35 Temperature 97.6 F Temperature Source Temporal Artery Scan Pulse Rate 75 Respiratory Rate 16 Blood Pressure 170/79 H Blood Pressure Mean 109 Blood Pressure Location Right Arm Blood Pressure Position Supine O2 Sat by Pulse Oximetry 98 Oxygen Delivery Method Room Air Room Air Room Air 03/21/23 05:58 03/21/23 07:00 03/21/23 08:00 Temperature Temperature Source Pulse Rate Respiratory Rate Blood Pressure Blood Pressure Mean Blood Pressure Location Blood Pressure Position O2 Sat by Pulse Oximetry Oxygen Delivery Method Room Air Room Air Room Air 03/21/23 08:00 03/21/23 09:00 03/21/23 09:41 Temperature 97.4 F L Temperature Source Axillary Pulse Rate 64 Respiratory Rate 18 Blood Pressure 114/56 L Blood Pressure Mean 75 Blood Pressure Location Left Arm Blood Pressure Position Sitting O2 Sat by Pulse Oximetry 97 Oxygen Delivery Method Room Air Room Air Room Air Lab Results Lab Results: Lab Results: Last 24 Hours 03/21/23 06:18 WBC 9.94 RBC 4.25 L Hgb 13.2 L Hct 41.1 L MCV 96.7 H MCH 31.1 H MCHC 32.1 RDW Coeff of Art 13.5 Plt Count 120 L Immature Gran % (Auto) 0.3 Neut % (Auto) 81.5 H Lymph % (Auto) 11.1 Wayne % (Auto) 7.0 Eos % (Auto) 0.0 Baso % (Auto) 0.1 Neut # (Auto) 8.1 H Lymph # (Auto) 1.1 Wayne # (Auto) 0.7 Eos # (Auto) 0.0 Baso # (Auto) 0.0 Immature Gran # (Auto) 0.0 Sodium 136.6 Potassium 4.46 Chloride 105.6 Carbon Dioxide 24.7 Anion Gap 10.76 BUN 28.5 H Creatinine 1.01 Estimated GFR (MDRD) 71.00 BUN/Creatinine Ratio 28.21 Glucose 113.6 H Calcium 8.36 L Total Bilirubin 0.49 AST 81.4 H ALT 34.6 Alkaline Phosphatase 51.2 L Total Protein 6.85 Albumin 3.73 Globulin 3.12 Albumin/Globulin Ratio 1.19 Additional Comments Additional Comments: I have independently reviewed and interpreted the labs/EKGs/imaging ordered during this hospital stay. I have reviewed outside records that are available in our EMR that pertain to medical stay including imaging/notes/labs from previous visits. Active Medications Active Medications: Medications Generic Name Dose Route Start Last Admin Trade Name Freq PRN Reason Stop Dose Admin Acetaminophen 650 mg 03/19/23 17:11 03/20/23 11:42 Acetaminophen 325 Mg Tablet PO 650 mg Q4H PRN Administration Mild Pain Aspirin 81 mg 03/21/23 07:30 03/21/23 08:41 Aspirin 81 Mg Tab.Chew PO Not Given DAILYWM2 ZAKIA Ibuprofen 600 mg 03/19/23 17:11 Ibuprofen 600 Mg Tablet PO Q8H PRN FEVER/PAIN Magnesium Oxide 400 mg 03/20/23 09:00 03/21/23 08:40 Magnesium Oxide 400 Mg Tablet PO 400 mg DAILY ZAKIA Administration Metoprolol Tartrate 50 mg 03/19/23 21:00 03/21/23 08:40 Metoprolol Tartrate 50 Mg Tablet PO 50 mg BID ZAKIA Administration Nirmatrelvir/Ritonavir 2 each 03/19/23 18:05 03/21/23 08:33 Nirmatrelvir/Ritonavir *Renal* 150-100 Mg Pack (Eua) PO 03/24/23 10:00 2 each BID ZAKIA Administration Omeprazole 40 mg 03/21/23 06:00 03/21/23 05:34 Omeprazole 20 Mg Capsule. PO 40 mg QDAC2 ZAKIA Administration Pravastatin Sodium 40 mg 03/20/23 09:00 03/21/23 08:40 Pravastatin Sodium 40 Mg Tablet PO 40 mg DAILY ZAKIA Administration Sodium Chloride 1 syr 03/19/23 21:00 03/21/23 05:34 0.9% Sodium Chloride 10 Ml Disp.Syrin IVF 1 syr Q8HR ZAKIA Administration Trazodone HCl 50 mg 03/19/23 21:00 03/20/23 20:12 Trazodone Hcl 50 Mg Tablet PO 50 mg BEDTIME ZAKIA Administration Plan Plan: 1. Acute metabolic encephalopathy in setting Covid 19 - Mentation at baseline. Has some paranoia, after speaking with his PCP this has been new in the last couple weeks. Easily redirected however. Cont tylenol and/or motrin prn for fever. Cont paxlovid. Isolation. 2. Covid 19 - CXR neg. On RA. Treating with paxlovid. 3. Hypertension - Cont home meds 4. Hyperlipidemia - Cont home meds 5. GERD - Cont home meds 6. Dementia - At baseline now. Pt has become unsafe to live by himself at assisted living. Per family friend, he does not receive much help at all there and it is to the point it is unsafe living conditions. Hasn't taken him medications in over a month at this point. Working on placement. Dispo: Awaiting placement Review Statement Review Statement: I have personally discussed and reviewed the patient's visit/currently labs/imaging/decision making with Dr. Rolle, my supervising attending. Greater that 50 minutes spent with patient, 50% of the time spent with this patient was devoted to counseling and coordination of care.
--- NOTE | 2023-03-21 12:02 | DCSUM ---
Admission Date Admission Date: 03/19/23 Discharge Date Discharge Date: 03/21/23 Admission Diagnosis Admission Diagnosis: 1. Acute metabolic encephalopathy in setting Covid 19 2. Covid 19 Discharge Diagnosis Discharge Diagnosis: 1. Acute metabolic encephalopathy in setting Covid 19 - Resolved 2. Covid 19 3. Hypertension 4. Hyperlipidemia 5. GERD 6. Dementia Hospital Provider Hospital Provider: GIUSEPPE PETTIT [facility] Summary of History and Physical Summary of History and Physical: Patient is a 82 year old male from assisted living with pmhx of hypertension, GERD, hyperlipidemia who presents with weakness, fall, and fever. Patient had not gotten out of bed for two days. Had a fall while ambulating to the bathroom. Did not have any major injuries. Has been more confused than his usual. Had a fever 101.6 and then 103.1 in the ER. His covid was positive. CXR negative. UA negative except for 2+ blood. On RA. He was lethargic initially. Was given motrin and tylenol. Fever improved and he was more alert. Pt thinks he's had the covid vaccine in the past. He was admitted to [facility]. This morning patient is confused and paranoid. He keeps asking about his expensive suits in the closet. States he needs to shave his face or he will be yelled at during inspection this evening. He has a family friend MANI who has been helping care for him at the assisted living - providing groceries, etc. He has maxed out his efforts and feels he needs retirement placement at this time. Pt is alert this morning. He is oriented to self and time. He thought he was at his assisted living. Sp[facility] with [facility], Li Lerner NP. She states he has dementia at baseline but the paranoid has been recently new. He hadn't taken his prepackaged medications in a month during her last visit. Hospital Course Subjective: Patient was treated with paxlovid. Has done well from a covid standpoint. Has returned to his baseline mentation of pleasantly confused and mildly paranoid. He is easily distracted. He has not required any medication for agitation. He has no close family available to contact. He has a good friend MANI and MANI's mother Geetha who have been closely involved with caring for him, helping with his medical and financial matters. They unfortunately do not feel they can care for him/meet his needs any longer. They don't feel he gets enough assistance at his current living situation. They feel he is unsafe. He is currently at [facility] and their retirement has accepted him there. They do prefer to wait until he is out of isolation per their policy on Saturday. They offered to have staff check on the patient every hour while he is at the assisted living until Saturday when he can transition to the retirement. He has been doing well here and performing ADLs without much assistance. This is a reasonable plan. Will discharge today to his assisted living apt with [facility], with plan to go to [facility] on Saturday. [facility] is aware of plan and in agreement with it. Of note, his urine did show 2+ hematuria. Recommend repeat UA outpatient and f/u with urology if warranted. CT head showed a lesion that could not be further differentiated. MRI brain w/o obtained and no masses were noted. Full reports below. [facility] P[facility] Li Lerner NP notified of discharge plan. Appearance: Pleasant, No Apparent Distress, Alert, Well-appearing and Well- nourished HEENT: MMM CVS: No Murmur Abdomen: Soft, Non-Tender and No Distention Respiratory: No Dyspnea Extremities: No Edema Vital Signs: Most Recent Vital Signs Temperature 97.4 F L 03/21/23 09:41 Temperature Source Axillary 03/21/23 09:41 Temperature Source Infrared 03/19/23 17:10 Pulse Rate 64 03/21/23 09:41 Respiratory Rate 18 03/21/23 09:41 Blood Pressure 114/56 L 03/21/23 09:41 Blood Pressure Mean 75 03/21/23 09:41 Blood Pressure Left Arm 114/56 03/19/23 17:58 Blood Pressure Location Left Arm 03/21/23 09:41 Blood Pressure Position Sitting 03/21/23 09:41 O2 Sat by Pulse Oximetry 97 03/21/23 09:41 Oxygen Delivery Method Room Air 03/21/23 10:46 Height 5 ft 8 in 03/19/23 17:58 Weight 125 lb 03/19/23 17:58 Telemetry Type Remote Telemetry 03/20/23 07:00 Telemetry Monitoring Continues 03/20/23 07:00 Telemetry Heart Rate 59 L 03/20/23 07:00 EKG CO Interval 0.14 03/20/23 07:00 EKG QRS Interval 0.09 03/20/23 07:00 Telemetry Strip Reading NSR 03/20/23 07:00 Imaging: EXAM: CHEST RADIOGRAPH TECHNIQUE: Single frontal chest radiograph. HISTORY: Fever COMPARISON: None. IMPRESSION: The heart size is normal. Mediastinal contours and pulmonary vasculature are within normal limits. The lungs are clear. There is no pleural effusion. There is no pneumothorax. EKG leads and clips obscure the chest. No acute findings. No active disease. EXAMINATION: HEAD CT WITHOUT CONTRAST HISTORY: Weakness. TECHNIQUE: Noncontrast CT of the brain was performed with images acquired from skull base to vertex. 2-D coronal and sagittal reformatted images were obtained from the axial source images. Contrast Dose: None. CT Dose Reduction Techniques Performed: Yes. COMPARISON: None. FINDINGS: Asymmetric low attenuation high centrum semiovale lesion in the right sobeida crab fisher nium sparing of the quiñonez-white matter junction. Ischemic process less likely. Malignancy or underlying mass not excluded. Additional low attenuation lesion in the lentiform nucleus and basal ganglia possibly representing chronic process sees. Brain MRI would definitively exclude an acute process as deemed clinically necessary. Ventricles: Normal size and morphology for age. Paranasal sinuses and mastoid air cells: Visualized portions of paranasal sinuses are clear. Mastoid air cells are clear. Orbits: Normal visualized portions. Sella/Skull Base: Normal. Other: Scalp and visualized soft tissues are normal. Calvarium is normal. IMPRESSION: As above. EXAMINATION: MAGNETIC RESONANCE IMAGING (MRI) OF THE BRAIN WITH AND WITHOUT CONTRAST HISTORY: Altered mental status. TECHNIQUE: Multiplanar multi-weighted MRI of the brain and brainstem was performed with and without intravenous contrast using the general brain protocol. Contrast: 13 mL clariscan COMPARISON: CT head 03/19/2023 FINDINGS: Parenchyma: No acute infarct. No acute hemorrhage. No enhancing intracranial lesion. No mass effect or midline shift. Craniocervical junction is normal. Chronic Change: Scattered foci of T2/FLAIR hyperintensity in the periventricular and subcortical white matter, which are nonspecific, however likely represent mild chronic microvascular ischemia. No remote microhemorrhages. Mild to moderate generalized cortical volume loss. 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 Chronic lacunar infarcts in the left lentiform nucleus and thal amus. Ventricles/Extra-axial Spaces: Ventricles are concordant with the degree of parenchymal volume loss. Normal basal cisterns. Sella/Skull Base: Pituitary and sella are normal. Paranasal Sinuses/Mastoids: Paranasal sinuses are clear. Mastoid air cells are clear. Orbits: Normal. Vasculature: Normal flow voids in the carotid arteries and basilar artery. Calvarium/Scalp: Normal marrow. No soft tissue swelling. Limited Cervical Spine: No significant abnormality. IMPRESSION: No acute intracranial abnormality. 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 Lab Results Last 24 Hours: 03/21/23 06:18 WBC 9.94 RBC 4.25 L Hgb 13.2 L Hct 41.1 L MCV 96.7 H MCH 31.1 H MCHC 32.1 RDW Coeff of Art 13.5 Plt Count 120 L Immature Gran % (Auto) 0.3 Neut % (Auto) 81.5 H Lymph % (Auto) 11.1 Dickens % (Auto) 7.0 Eos % (Auto) 0.0 Baso % (Auto) 0.1 Neut # (Auto) 8.1 H Lymph # (Auto) 1.1 Dickens # (Auto) 0.7 Eos # (Auto) 0.0 Baso # (Auto) 0.0 Immature Gran # (Auto) 0.0 Sodium 136.6 Potassium 4.46 Chloride 105.6 Carbon Dioxide 24.7 Anion Gap 10.76 BUN 28.5 H Creatinine 1.01 Estimated GFR (MDRD) 71.00 BUN/Creatinine Ratio 28.21 Glucose 113.6 H Calcium 8.36 L Total Bilirubin 0.49 AST 81.4 H ALT 34.6 Alkaline Phosphatase 51.2 L Total Protein 6.85 Albumin 3.73 Globulin 3.12 Albumin/Globulin Ratio 1.19 Discharge Instructions Discharge Planning: Discharge Planning > [address] Mitra Rolle. Discharge Medications: Medications at Discharge (Home Meds & RX) acetaminophen 500 mg capsule 500 mg PO Q4-6H PRN fever or pain 03/19/23 aspirin 81 mg capsule 81 mg PO DAILY 03/19/23 baclofen 5 mg tablet 5 mg PO TID 03/19/23 cholecalciferol (vitamin D3) 50 mcg (2,000 unit) capsule 50 mcg PO DAILY 03/19/23 docusate sodium 100 mg capsule (Colace) 200 mg PO DAILY PRN constipation 03/19/23 magnesium oxide 400 mg PO DAILY 03/19/23 meclizine 25 mg tablet (Dramamine (meclizine)) 25 mg PO TID PRN dizziness 03/19/23 melatonin 3 mg capsule 6 mg PO BEDTIME 03/19/23 metoprolol tartrate 50 mg tablet (Lopressor) 50 mg PO BID 03/19/23 omeprazole 40 mg capsule,delayed release 40 mg PO DAILY 03/19/23 pravastatin 40 mg tablet 40 mg PO DAILY 03/19/23 trazodone 50 mg tablet 50 mg PO BEDTIME 03/19/23 nirmatrelvir 150 mg-ritonavir 100 mg tablets in a dose pack (Paxlovid) 2 ea PO BID #20 ea 03/21/23 Discharge Plan Discharge Discharge Orders: Discharge Patient (ONCE); Ordered 03/21/23 Ordered By: GIUSEPPE PETTIT Activity Restrictions/Additional Instructions: DISCHARGE TO ASSISTED LIVING PLAN TO TRANSITION TO [facility] SATURDAY COVID ISOLATION FINISH PAXLOVID DIET: HEART HEALTHY ACTIVITY: TOLERATED Instructions: Weakness (GEN), COVID-19 (Coronavirus Disease 2019) (GEN) Patient Disposition: DISCHARGE TO ASSIST LIVING Prescriptions: New Paxlovid 150-100 mg Tablets,Dose Pack 2 ea PO BID Qty: 20 0RF Rx Instructions: SEND HOME REMAINDER OF PACKET WITH PATIENT Continued aspirin 81 mg capsule 81 mg PO DAILY trazodone 50 mg tablet 50 mg PO BEDTIME pravastatin 40 mg tablet 40 mg PO DAILY omeprazole 40 mg capsule,delayed release(DR/EC) 40 mg PO DAILY metoprolol tartrate [Lopressor] 50 mg tablet 50 mg PO BID melatonin 3 mg capsule 6 mg PO BEDTIME meclizine [Dramamine (meclizine)] 25 mg tablet 25 mg PO TID PRN (Reason: dizziness) magnesium oxide 400 mg magnesium capsule 400 mg PO DAILY docusate sodium [Colace] 100 mg capsule 200 mg PO DAILY PRN (Reason: constipation) cholecalciferol (vitamin D3) 50 mcg (2,000 unit) capsule 50 mcg PO DAILY baclofen 5 mg tablet 5 mg PO TID acetaminophen 500 mg capsule 500 mg PO Q4-6H PRN (Reason: fever or pain) Did you review [place] SUPERCHARGE REPAIR SUPERVISOR for ALL controlled substances?: Not Applicable Discussed opioids are addictive and Narcan is available by prescription or from pharmacy.: No Condition: Stable
== END 2023-03-21 13:40 | disposition home or self-care (01) ==
LOC: ED 13:14 → INTOOBSV 17:11 → SCU 17:11
PROVIDERS: ADMIT Hospitalist; ATTEND Physician Assistant
DX: Z91.81 History of falling; Z74.09 Other reduced mobility; K21.9 Gastro-esophageal reflux disease without esophagitis; U07.1 COVID-19; E78.5 Hyperlipidemia, unspecified; G93.41 Metabolic encephalopathy; R26.2 Difficulty in walking, not elsewhere classified; F03.90 Unspecified dementia, unspecified severity, without behavioral disturbance, psychotic disturbance, mood disturbance, and anxiety; M62.81 Muscle weakness (generalized); W19.XXXA Unspecified fall, initial encounter; I10 Essential (primary) hypertension